=== PATIENT | male | born 1955 ===

== ENCOUNTER 2018-01-30 02:02 | Inpatient (IN) | payer OTHER ==
[2018-01-30] MEDS ORDERED: Ondansetron PF 4 MG/2 ML Vial ONE (02:30)
[2018-01-30 02:44] LABS: #Eosinphils 0.3 thou/uL (0.0-0.7); #Monocytes 1.2 thou/uL (0.11-0.59); #Neutrophils 14.3 thou/uL (1.40-6.50); %Basophils 0.1 % (0.0-1.0); %Eosinophils 1.8 % (0.0-10.0); %Lymphocytes 5.9 % (21.0-51.0); %Monocytes 7.2 % (0.0-10.0); Hemoglobin 13.6 g/dL (14.0-18.0); Mean Corpuscular HGB CONC 33.5 g/dL (32.0-36.0); Mean Corpuscular Hemoglobin 31.1 pg (27.0-31.0); Mean Corpuscular Volume 92.7 fL (78.0-98.0); Mean Platelet Volume 7.4 fL (7.4-10.4); Platelet Count 233 thou/uL (130-400); RBC Distribution Width 12.7 % (11.5-14.5); Red Blood Cell (RBC) Count 4.39 mill/uL (4.70-6.10); White Blood Cell (WBC) Count 16.8 thou/uL (4.8-10.8)
[2018-01-30 02:51] LABS: INR-International Normal Ratio 1.1; Prothrombin Time 14.5 SEC (12.0-14.7)
[2018-01-30 03:05] LABS: ALT (SGPT) 12 U/L (8-55); AST (SGOT) 20 U/L (5-34); Albumin 3.9 g/dL (3.4-4.8); Alkaline Phosphatase 107 U/L (40-150); Anion Gap 10 mmol/L (10-20); BUN (Urea Nitrogen) 10 mg/dL (8.4-25.7); Bilirubin, Total 0.2 mg/dL (0.2-1.2); Calc. Creatinine Clearance 0 mL/min (70-130); Calcium 8.8 mg/dL (7.8-10.44); Carbon Dioxide 26 mmol/L (23-31); Chloride 101 mmol/L (98-107); Estimated GFR-MDRD Greater than 90; Globulin 2.9 g/dL (2.4-3.5); Glucose 105 mg/dL (80-115); Potassium 3.7 mmol/L (3.5-5.1); Protein, Total 6.8 g/dL (5.8-8.1); Sodium 133 mmol/L (136-145)
[2018-01-30 03:08] LABS: CKMB 3.4 ng/mL (0-6.6); Troponin I Less than 0.010 ng/mL (< 0.028)
[2018-01-30] MEDS ORDERED: Acetaminophen 500 MG TAB ONE ×2 (03:27→03:31)
[2018-01-30] MEDS ORDERED: Lidocaine 1% w/Epinephrine 1:100K 20 ML VIAL ONE (04:43)
[2018-01-30] MEDS ORDERED: Piperacillin/Tazobactam 3.375 GM VIAL ONE (05:11)
[2018-01-30] MEDS ORDERED: Adacel (T-DAP) 0.5 ML SYRINGE ONE ×2 (06:37→06:44)
[2018-01-30 08:59] VITALS: BMI 21.8
--- NOTE | 2018-01-30 10:01 | CT ---
PRELIMINARY REPORT/[facility]/EMERGENTY AFTER-HOURS PROCEDURE CT Head Without Intravenous Contrast EXAM DATE/TIME: 01/30/2018 3:37 AM CLINICAL HISTORY: 62 years old, male; Injury or trauma; Fall; Initial encounter; Abrasion and bleeding / hemorrhage and blunt trauma (contusions or hematomas); Face and forehead; Injury date: 01/29/2018; Patient HX: PT fe ll and hit head on wheelchair. Per PT has HX of falls due to scoliosis. Loc unknown, approx. 200ml bl ood loss. Ems concerned with blood loss and possible AMS. Per stephon rn, PT able to protect airway, a ox4 TECHNIQUE: Axial computed tomography images of the head/brain without intravenous contrast. COMPARISON: No relevant prior studies available. FINDINGS: Brain: Volume loss and chronic small vessel ischemic change. No brain edema. No intracranial hemorrha ge. Ventricles: Normal. No ventriculomegaly. Bones/joints: Normal. No acute fracture. Sinuses: Normal as visualized. No acute sinusitis. Mastoid air cells: Normal as visualized. No mastoid effusion. Soft tissues: Scalp laceration. IMPRESSION: No acute brain findings. Thank you for allowing us to participate in the care of your patient. Dictated and Authenticated by: Horace Winn MD 01/30/2018 3:54 AM Central Time ([place] & [place]) FINAL REPORT EMERGENT AFTER HOURS CT OF BRAIN PERFORMED WITHOUT CONTRAST ENHANCEMENT: HISTORY: Fall with head injury. FINDINGS: The ventricular and cisternal system is within normal limits. There is some decreased attenuation to the periventricular white matter. There are no signs of intracerebral hemorrhage or extraaxial flui d collection. A scalp laceration is noted without evidence of underlying fracture. IMPRESSION: 1. No acute intracranial abnormalities. 2. This report is in agreement with the temporary report issued by [facility]. POS: [facility]
--- NOTE | 2018-01-30 10:02 | CT ---
PRELIMINARY REPORT/[facility]/EMERGENTY AFTER-HOURS PROCEDURE CT Cervical Spine Without Intravenous Contrast EXAM DATE/TIME: 01/30/2018 3:40 AM CLINICAL HISTORY: 62 years old, male; Injury or trauma; Fall; Initial encounter; Abrasion and bleeding/hemorrhage and b zhanna trauma; Injury date: 01/29/18; Patient HX: PT fell and hit head on wheelchair. Per PT has HX of f alls due to scoliosis. Loc unknown, approx. 200ml blood loss. Ems concerned with blood loss and possible AMS. Per stephon rn, PT able to protect airway, aox4 TECHNIQUE: Axial computed tomography images of the cervical spine without intravenous contrast. COMPARISON: No relevant prior studies available. FINDINGS: Vertebrae: No acute fracture. Normal alignment. Discs/Spinal canal/Neural foramina: No spinal stenosis. No neural foraminal narrowing. Soft tissues: Unremarkable. Lungs: Lung apices are normal. IMPRESSION: No acute findings. Thank you for allowing us to participate in the care of your patient. Dictated and Authenticated by: Horace Winn MD 01/30/2018 4:07 AM Central Time ([place] & [place]) FINAL REPORT EMERGENT AFTER HOURS CT OF CERVICAL SPINE PERFORMED WITHOUT CONTRAST ENHANCEMENT: HISTORY: Fall with neck injury. FINDINGS: The vertebral bodies are normal in height. There is marked degenerative disk narrowing from the C3-4 to the C6-7 level. Some retrolisthesis of C4 on C5 and C5 on C6 and C6 on C7. At the C3-4 level, h ere is moderate right-sided foraminal narrowing. There is bilateral foraminal stenosis at C4-5 and m ild to moderate canal narrowing and bilateral foraminal narrowing at C5-6 and C6-7. The foraminal na rrowing at C6-7 is particularly pronounced on the left. There is no CT evidence of a fracture. Lung apices show some emphysematous-type change. IMPRESSION: 1. Marked arthritic changes of the spine. No CT evidence of fracture. 2. This report is in agreement with the temporary report issued by [facility]. POS: [facility]
[2018-01-30] MEDS ORDERED: Clotrimazole 1 % Cream 30 GM TUBE TOP PRN ×2 (10:05→10:18)
[2018-01-30] MEDS ORDERED: Acetaminophen 325 MG TAB PO PRN (10:05)
[2018-01-30] MEDS ORDERED: Acetaminophen 650 MG Suppository PR PRN (10:05)
[2018-01-30] MEDS ORDERED: HYDROcodone/Acetaminophen 5/325 mg Tablet PO PRN (10:05)
[2018-01-30] MEDS ORDERED: Hydroxychloroquine Sulfate 200 MG TAB PO SCH ×2 (10:05)
--- NOTE | 2018-01-30 12:07 | RAD ---
LEFT SHOULDER 3 VIEWS: HISTORY: Fall. Shoulder pain. FINDINGS/IMPRESSION: No acute fracture or dislocation is seen. POS: [facility]
[2018-01-30] MEDS: Ipratropium Bromide 2.5 ml Neb NEB SCH ×2 (12:53→18:49)
[2018-01-30] MEDS ORDERED: Iopamidol 370 76% 100 ML VIAL ONE (13:52)
[2018-01-30] MEDS ORDERED: CHLORPHENIRAMINE MALEATE 4 MG PO SCH (15:00)
[2018-01-30] MEDS: HYDROcodone/Acetaminophen 5/325 mg Tablet PO PRN ×2 (15:02→21:00)
[2018-01-30] MEDS ORDERED: Fluticasone Propionate HFA 110 MCG AER INH SCH ×3 (18:30→21:00)
[2018-01-30] MEDS: Mometasone 100 MCG HFA INHALER INH SCH (18:46)
[2018-01-30] MEDS ORDERED: Pravastatin Sodium 40 MG TAB PO SCH (21:00)
[2018-01-30] MEDS: Atorvastatin Calcium 10 MG TAB PO SCH (21:02)
[2018-01-30] MEDS: Terazosin HCl 1 MG CAP PO SCH (21:03)
[2018-01-30] MEDS: Famotidine 20 MG TAB PO SCH (21:03)
[2018-01-30] MEDS: carBAMazepine 200 MG TAB PO SCH (21:03)
[2018-01-30] MEDS: Calcium Carbonate + Vit D 250 MG TAB PO SCH (21:03)
[2018-01-31] MEDS: HYDROcodone/Acetaminophen 5/325 mg Tablet PO PRN ×4 (00:55→22:11)
[2018-01-31] MEDS: Ipratropium Bromide 2.5 ml Neb NEB SCH ×5 (01:53→23:13)
[2018-01-31] MEDS: Mometasone 100 MCG HFA INHALER INH SCH ×2 (06:41→19:02)
[2018-01-31] MEDS: CHLORPHENIRAMINE MALEATE 4 MG PO SCH (08:10)
[2018-01-31] MEDS ORDERED: Non-Formulary Item 1 EACH (Omeprazole [Omeprazole] 20 MG) PO SCH (09:00)
[2018-01-31] MEDS ORDERED: Spiriva 18 MCG CAP (Box of 5 Caps) INH SCH (09:00)
[2018-01-31] MEDS ORDERED: Hydroxychloroquine Sulfate 200 MG TAB PO SCH (09:00)
[2018-01-31] MEDS ORDERED: Non-Formulary Item 1 EACH (Terazosin Hcl [Terazosin Hcl] 2 MG) PO SCH (09:00)
[2018-01-31] MEDS: Famotidine 20 MG TAB PO SCH ×2 (09:05→22:10)
[2018-01-31] MEDS: Calcium Carbonate + Vit D 250 MG TAB PO SCH ×2 (09:06→22:10)
[2018-01-31] MEDS: Lisinopril 2.5 MG TAB PO SCH (09:06)
[2018-01-31] MEDS: Leflunomide 10 mg Tablet PO SCH (09:06)
[2018-01-31] MEDS: Amlodipine 10 MG TAB PO SCH (09:07)
[2018-01-31] MEDS: Aspirin 81 mg Enteric Coated Tablet PO SCH (09:07)
[2018-01-31] MEDS: predniSONE 5 MG TAB PO SCH (09:07)
[2018-01-31] MEDS: carBAMazepine 200 MG TAB PO SCH ×2 (09:07→22:10)
[2018-01-31 09:30] LABS: #Basophils 0.1 thou/uL (0.0-0.2); #Eosinphils 0.5 thou/uL (0.0-0.7); #Monocytes 1.1 thou/uL (0.11-0.59); #Neutrophils 11.7 thou/uL (1.40-6.50); %Basophils 0.5 % (0.0-1.0); %Eosinophils 3.2 % (0.0-10.0); %Monocytes 7.6 % (0.0-10.0); %Neutrophils 81.7 % (42.0-75.0); Hemoglobin 13.3 g/dL (14.0-18.0); Mean Corpuscular HGB CONC 33.1 g/dL (32.0-36.0); Mean Corpuscular Hemoglobin 30.5 pg (27.0-31.0); Mean Corpuscular Volume 92.4 fL (78.0-98.0); Mean Platelet Volume 6.9 fL (7.4-10.4); Platelet Count 210 thou/uL (130-400); RBC Distribution Width 12.7 % (11.5-14.5); Red Blood Cell (RBC) Count 4.35 mill/uL (4.70-6.10); White Blood Cell (WBC) Count 14.3 thou/uL (4.8-10.8)
[2018-01-31 09:51] LABS: ALT (SGPT) 12 U/L (8-55); AST (SGOT) 16 U/L (5-34); Albumin 3.5 g/dL (3.4-4.8); Alkaline Phosphatase 94 U/L (40-150); Anion Gap 10 mmol/L (10-20); BUN (Urea Nitrogen) 10 mg/dL (8.4-25.7); Bilirubin, Total 0.4 mg/dL (0.2-1.2); Calc. Creatinine Clearance 81 mL/min (70-130); Calcium 8.9 mg/dL (7.8-10.44); Carbon Dioxide 26 mmol/L (23-31); Chloride 103 mmol/L (98-107); Estimated GFR-MDRD Greater than 90; Globulin 2.7 g/dL (2.4-3.5); Glucose 99 mg/dL (80-115); Magnesium 1.9 mg/dL (1.6-2.6); Protein, Total 6.2 g/dL (5.8-8.1); Sodium 135 mmol/L (136-145)
--- NOTE | 2018-01-31 11:16 | CT ---
PRELIMINARY REPORT/[facility]/EMERGENTY AFTER-HOURS PROCEDURE CT Chest With Intravenous Contrast EXAM DATE/TIME: 01/30/2018 3:47 AM CLINICAL HISTORY: 62 years old, male; Injury or trauma; Fall; Initial encounter; Abrasion and bleeding/hemorrhage and b zhanna; Generalized; Generalized abdominal region; Abrasion and bleeding/hemorrhage and blunt trauma (c ontusions or hematomas); Patient HX: PT fell and hit head on wheelchair. Per PT has HX of falls due t o scoliosis. Loc unknown, approx. 200ml blood loss. Ems concerned with blood loss and possible AMS. P er med rn, PT able to protect airway, aox4 TECHNIQUE: Axial computed tomography images of the chest with intravenous contrast. COMPARISON: No relevant prior studies available. FINDINGS: Lungs: Mild patchy bronchopneumonia/bronchiolitis in the left lower lobe. There are 2 adjacent irregu lar nodular opacities in the inferior right upper lobe, the larger of which measures 1 cm in size, in determinate, possibly scarring or sequela of prior infection. Neoplasm unlikely but not excluded. Pleural space: No pneumothorax or hemothorax. Heart: Normal. No cardiomegaly. No pericardial effusion. Mediastinum: Esophagus is unremarkable. Aorta: No traumatic aortic injury. No mediastinal hematoma, pneumomediastinum, or hemopericardium. Lymph nodes: Unremarkable. No enlarged lymph nodes. Bones/joints: Unremarkable. No acute fracture. Soft tissues: Gynecomastia. Other findings: No pulmonary contusion. IMPRESSION: 1. Mild patchy bronchopneumonia/bronchiolitis in the left lower lobe. 2. There are 2 adjacent irregular nodular opacities in the inferior right upper lobe, the larger of w hich measures 1 cm in size, indeterminate, possibly scarring or sequela of prior infection. Neoplasm unlikely but not excluded. 3. No acute traumatic injury. CT Abdomen and Pelvis With Intravenous Contrast EXAM DATE/TIME: 01/30/2018 3:47 AM TECHNIQUE: Axial computed tomography images of the abdomen and pelvis with intravenous contrast. COMPARISON: No relevant prior studies available. FINDINGS: Lower thorax: No acute findings. ABDOMEN: Liver: Normal. No mass. Gallbladder and bile ducts: Gallbladder sludge versus cholelithiasis. No cholecystitis. No biliary du ctal dilatation. Pancreas: Normal. No ductal dilation. Spleen: Normal. No splenomegaly. Adrenals: 7.1 cm right suprarenal mass containing gross fat, soft tissue density, and a small focal c alcification, potentially arising from the right adrenal gland. Kidneys and ureters: Subcentimeter low attenuation left renal lesion is too small to further characte rize, potentially a cyst. Nonobstructive nephrolithiasis left kidney. Stomach and bowel: No bowel wall thickening or intestinal obstruction. Appendix: Normal appendix. PELVIS: Bladder: Unremarkable as visualized. Reproductive: Unremarkable as visualized. ABDOMEN and PELVIS: Intraperitoneal space: No hemoperitoneum, pneumoperitoneum, mesenteric/omental contusion, or retroper itoneal hematoma. Bones/joints: No acute fracture. No dislocation. Soft tissues: Unremarkable. Vasculature: Normal. No abdominal aortic aneurysm. Lymph nodes: Normal. No enlarged lymph nodes. Other findings: No traumatic organ injury. IMPRESSION: 1. 7.1 cm right suprarenal mass containing gross fat, soft tissue density, and a small focal calcific ation, potentially arising from the right adrenal gland. This is potentially malignant, possibly a li posarcoma. Fat necrosis less likely but not excluded. 2. No acute traumatic injury. Thank you for allowing us to participate in the care of your patient. Dictated and Authenticated by: Horace Winn MD 01/30/2018 4:16 AM Central Time ([place] & [place]) FINAL REPORT CT OF CHEST AND ABDOMEN AND PELVIS AND THORACIC AND LUMBAR SPINE PERFORMED WITH INTRAVENOUS CONTRAST ENHANCEMENT: HISTORY: The patient is status post fall with diffuse pain and bruising and bleeding. FINDINGS: The lungs show some areas of ground-glass opacity in the left lower lobe and right upper lobe. There is also a pleural-based 4 m nodular density seen in the right upper lobe axial image 32 and a simila r-sized pleural-based nodule seen along the major fissure on the left on axial image 30. There are s ubsegmental atelectatic changes in the lung bases. There are no signs of pneumothorax. I did not vi sualize any definite acute rib fractures. Thoracic aorta is normal in caliber. No signs for mediastinal hematoma. A tiny pericardial effusion is seen. CT OF ABDOMEN PERFORMED WITH CONTRAST: The liver, spleen, and pancreas regions are unremarkable. The gallbladder shows some areas of increa sed attenuation. This could represent sludge or stones. Gallbladder is mildly distended. In the region of the right adrenal gland is a large mass which contains fat density as well as some c alcifications. It has a thin pseudocapsule. This measures approximately 6.9 cm in diameter. It is probably related to the inferior limb of the right adrenal gland. The left adrenal is normal in appe arance. There is a tiny calculus seen in the upper pole of the right kidney. There are hypodensitie s involving both kidneys which are statistically most likely cysts. No significant periaortic or mes enteric adenopathy. No signs for any bowel wall injury. CT OF PELVIS PERFORMED WITH CONTRAST ENHANCEMENT: No evidence of adenopathy, mass, or free fluid. Slight bladder wall thickening may be on the basis o f some bladder outlet obstruction. There are old-appearing right superior and inferior pubic rami fr actures. CT THORACIC SPINE: Arthritic changes without acute injury. CT OF LUMBAR SPINE: No acute injury. IMPRESSION: 1. Approximately 6.9 cm right suprarenal mass which has fat and calcification within it. It appears to be probably related to the inferior limb of the right adrenal gland and most likely is of adrenal origin, probably a myelolipoma. Another consideration would be a retroperitoneal liposarcoma. This does not appear to represent an angiomyelipoma as it appears to have a fat plane the bobby cent kidney. 2. Tiny punctate nonobstructing upper pole left renal calculus. 3. Mild gallbladder distention with sludge or stones. Ultrasound would be required for assessment. 4. Small pleural-based pulmonary nodules. These could represent subpleural nodes. 5. Ground-glass opacities in both lung anthony. This would suggest some minimal pneumonitis-type leilani nge. 6. No evidence of any acute traumatic injury. 7. This report is in agreement with the temporary report issued by [facility]. POS: [facility]
[2018-01-31] MEDS: Ondansetron ODT 4 MG TAB PO PRN ×2 (11:50→22:11)
[2018-01-31] MEDS: Meclizine HCl 25 MG TAB PO PRN ×2 (11:50→22:10)
[2018-01-31] MEDS: Atorvastatin Calcium 10 MG TAB PO SCH (22:10)
[2018-01-31] MEDS: Terazosin HCl 1 MG CAP PO SCH (22:12)
[2018-01-31] MEDS: Sodium Chloride 0.9% 10 ML ONE (22:12)
[2018-02-01 05:48] LABS: #Eosinphils 0.3 thou/uL (0.0-0.7); #Lymphocytes 1.2 thou/uL (1.20-3.40); #Monocytes 0.9 thou/uL (0.11-0.59); #Neutrophils 6.8 thou/uL (1.40-6.50); %Basophils 0.1 % (0.0-1.0); %Eosinophils 3.5 % (0.0-10.0); %Lymphocytes 13.2 % (21.0-51.0); %Monocytes 9.6 % (0.0-10.0); %Neutrophils 73.6 % (42.0-75.0); Hemoglobin 12.4 g/dL (14.0-18.0); Mean Corpuscular HGB CONC 32.7 g/dL (32.0-36.0); Mean Corpuscular Hemoglobin 30.3 pg (27.0-31.0); Mean Corpuscular Volume 92.9 fL (78.0-98.0); Mean Platelet Volume 7.4 fL (7.4-10.4); Platelet Count 231 thou/uL (130-400); RBC Distribution Width 12.8 % (11.5-14.5); White Blood Cell (WBC) Count 9.2 thou/uL (4.8-10.8)
[2018-02-01 05:51] LABS: ALT (SGPT) 12 U/L (8-55); AST (SGOT) 17 U/L (5-34); Albumin 3.5 g/dL (3.4-4.8); Alkaline Phosphatase 94 U/L (40-150); Anion Gap 11 mmol/L (10-20); BUN (Urea Nitrogen) 12 mg/dL (8.4-25.7); Bilirubin, Total 0.4 mg/dL (0.2-1.2); Calc. Creatinine Clearance 77 mL/min (70-130); Calcium 8.6 mg/dL (7.8-10.44); Carbon Dioxide 25 mmol/L (23-31); Chloride 103 mmol/L (98-107); Estimated GFR-MDRD Greater than 90; Globulin 2.4 g/dL (2.4-3.5); Glucose 99 mg/dL (80-115); Magnesium 2.1 mg/dL (1.6-2.6); Potassium 3.9 mmol/L (3.5-5.1); Protein, Total 5.9 g/dL (5.8-8.1); Sodium 135 mmol/L (136-145)
[2018-02-01] MEDS: HYDROcodone/Acetaminophen 5/325 mg Tablet PO PRN ×2 (06:35→13:21)
[2018-02-01] MEDS: Ipratropium Bromide 2.5 ml Neb NEB SCH (06:48)
[2018-02-01] MEDS: Mometasone 100 MCG HFA INHALER INH SCH (06:50)
--- NOTE | 2018-02-01 08:05 | PDOC.PN ---
- Subjective Encounter Start Date: 02/01/18 Encounter Start Time: 08:03 Subjective: shoulder pain - Objective Resuscitation Status: Resuscitation Status FULL:Full Resuscitation Vital Signs & Weight: Vital Signs (12 hours) Temp Pulse Resp BP BP Pulse Ox 02/01/18 06:48 88 16 98 02/01/18 04:00 98.4 F 88 20 101/55 L 98 01/31/18 23:13 90 18 01/31/18 22:11 96 01/31/18 22:01 98 F 84 16 120/71 96 Weight Weight 129 lb 4.8 oz I&O: 01/31/18 02/01/18 02/02/18 06:59 06:59 06:59 Intake Total 1260 Output Total 750 Balance 510 Result Diagrams: 02/01/18 05:03 02/01/18 05:03 Phys Exam - Physical Examination sutured laceration scalp Respiratory: no wheezing Cardiovascular: RRR, no significant murmur Gastrointestinal: soft, positive bowel sounds Musculoskeletal: no edema Dx/Plan (1) Scalp laceration Status: Acute Qualifiers: Encounter type: initial encounter Qualified Code(s): S01.01XA - Laceration without foreign body of scalp, initial encounter (2) Hepatitis-C Code(s): B19.20 - UNSPECIFIED VIRAL HEPATITIS C WITHOUT HEPATIC COMA Status: Acute Qualifiers: Viral hepatitis chronicity: chronic Hepatic coma status: without hepatic coma Qualified Code(s): B18.2 - Chronic viral hepatitis C (3) HTN (hypertension) Code(s): I10 - ESSENTIAL (PRIMARY) HYPERTENSION Status: Acute Qualifiers: Hypertension type: essential hypertension Qualified Code(s): I10 - Essential (primary) hypertension (4) PNA (pneumonia) Code(s): J18.9 - PNEUMONIA, UNSPECIFIED ORGANISM Status: Acute Qualifiers: Pneumonia type: due to Pneumococcus Laterality: left Lung location: lower lobe of lung Qualified Code(s): J13 - Pneumonia due to Streptococcus pneumoniae - Plan * .
[2018-02-01] MEDS ORDERED: Hydroxychloroquine Sulfate 200 MG TAB PO SCH (09:00)
[2018-02-01] MEDS: carBAMazepine 200 MG TAB PO SCH (09:24)
[2018-02-01] MEDS: predniSONE 5 MG TAB PO SCH (09:25)
[2018-02-01] MEDS: Leflunomide 10 mg Tablet PO SCH (09:25)
[2018-02-01] MEDS: Amlodipine 10 MG TAB PO SCH (09:25)
[2018-02-01] MEDS: Famotidine 20 MG TAB PO SCH (09:26)
[2018-02-01] MEDS: Calcium Carbonate + Vit D 250 MG TAB PO SCH (09:26)
[2018-02-01] MEDS: Aspirin 81 mg Enteric Coated Tablet PO SCH (09:26)
[2018-02-01] MEDS: Lisinopril 2.5 MG TAB PO SCH (09:26)
[2018-02-01] MEDS: Sodium Chloride 0.9% 10 ML ONE (09:27)
[2018-02-01] MEDS: Meclizine HCl 25 MG TAB PO PRN (10:50)
--- NOTE | 2018-02-01 12:36 | DIS ---
DATE OF ADMISSION: 01/30/2018 DATE OF DISCHARGE: 02/01/2018 Discharged back to [facility]. FINAL DIAGNOSES: Fall, scalp laceration post-suture, question of pneumonia versus bronchiolitis, hep atitis C, hypertension, chronic obstructive pulmonary disease. DISCHARGE MEDICATIONS: The patient is being discharged on his usual home medicines, amlodipine 5 mg a day, aspirin 81 mg a day, 400 mg b.i.d., chlorpheniramine 4 mg t.i.d., hydroxychloroquine 20 0 mg a.m., 400 mg p.m., Arava 20 mg p.o. daily, lisinopril 2.5 mg a day, omeprazole 20 mg a day, prav astatin 40 mg a day, terazosin 2 mg a day, Spiriva 18 mcg a day, prednisone 15 mg a day plus Omnicef 300 mg p.o. b.i.d. ALLERGIES: NAPROXEN. CODE STATUS: FULL. PENDING AT THE TIME OF DISCHARGE: Nothing. DIET: As tolerated. HOSPITAL COURSE: Patient at the [facility], fell out of his wheelchair, hit his head, was brought to the em ergency room. Scalp lesions were lacerated. He had multiple somatic complaints. LABORATORY DATA: Initial white count 16.8, current 9.2. Initial hemoglobin 13.6, current 12.4. Ini tial platelet count 233,000, current 231,000. INR 1.1. Comp metabolic profile x3 reveals only a mil d low sodium of 133, 135, 135. Unfortunately, history and physical, progress note from his two previous days of admission are not av ailable. I have carefully researched the emergency room note, carefully evaluated the patient find t hat he is in no need of hospital care at this time. He is being discharged for followup in 7 days in the half-way. CT scan of his chest reveals some possible left lower lobe, small pneumonia or bronchioli tis. He was placed on oral antibiotics in the hospital. Blood cultures were negative. Patient has been afebrile with no respiratory complaints in the hospital. He is being discharged on the addition al Omnicef 300 mg p.o. b.i.d. for 7 days for this possible low-grade chest infection. It is advisabl e he is reevaluated by medical care at the half-way in 7 days.
[2018-02-01 13:34] VITALS: BP 103/61; TEMP 98.3
--- NOTE | 2018-02-12 17:04 | EKG ---
Test Reason : Blood Pressure : / mmHG Vent. Rate : 098 BPM Atrial Rate : 098 BPM P-R Int : 128 ms QRS Dur : 090 ms QT Int : 370 ms P-R-T Axes : 023 031 050 degrees QTc Int : 472 ms Normal sinus rhythm Normal ECG Confirmed by EVI HAYNES ([id number]), editor magazine MARY JENSEN ([id number]) on 02/12/2018 5:04:06 PM Referred By: Confirmed By:EVI HAYNES
--- NOTE | 2018-04-20 05:45 | HP ---
PRIMARY CARE PHYSICIAN: Unknown. Out of town. CHIEF COMPLAINT: Fall. HISTORY OF PRESENT ILLNESS: Mr. Gaston is a 62-year-old male who presented to an outside emergency department at [facility] for evaluation of a fall. The patient was in a wheelchair and fell out. He lost approximately 200 mL of blood and was complaining of head pain. He was seen and evaluated at the [facility] and transferred to our facility for further workup and admission. He complained of left shoulder pain. Did not lose consciousness. No chest pain or shortness of breath. No diarrhea or constipation. No syncope or presyncope. The patient is a prisoner at one of the units in [place], however, there was no bed at [facility] and so they were unable to transfer the patient, so he was transferred to us to admit. He was accepted by the regional operations manager with a hold over for the morning. PAST MEDICAL HISTORY: 1. Atrial fibrillation. 2. Hypertension. 3. Osteoarthritis. 4. Rheumatoid arthritis. 5. COPD. 6. Anxiety with depression. PAST SURGICAL HISTORY: Includes; 1. Multiple skin grafts. 2. Umbilical hernia repair. 3. Foot surgery. ALLERGIES: NAPROSYN CAUSES GI BLEEDING. HOME MEDICATIONS: Include; 1. Tylenol 650 mg p.o. t.i.d. 2. Amlodipine 10 mg daily. 3. Aspirin 81 mg daily. 4. Carbamazepine 200 mg p.o. b.i.d.. 5. Calcium carbonate plus D 600/500 one tablet daily. 6. Chlorpheniramine 4 mg t.i.d. 7. Clotrimazole cream 1% topically as needed. 8. Flovent HFA 2 puffs inhaled q.4 hours p.r.n. 9. Hydroxychloroquine 200 mg p.o. 3 times a week, 400 mg 4 times a week. 10. Leflunomide 20 mg p.o. daily. 11. Lisinopril 2.5 mg p.o. daily. 12. Omeprazole 20 mg daily. 13. Pravastatin 40 mg p.o. at bedtime. 14. Prednisone 2.5 mg p.o. daily. 15. Spiriva 18 mcg inhaled daily. 16. Terazosin 2 mg p.o. daily. SOCIAL HISTORY: Prior tobacco use, quit more than 10 years ago, smoked about a pack per day. FAMILY HISTORY: Negative for clotting or bleeding disorders, no immune dysfunction. REVIEW OF SYSTEMS: All systems reviewed and negative except as stated in the HPI. PHYSICAL EXAMINATION: VITAL SIGNS: Temperature in the emergency department was 98.7, pulse 106, blood pressure 145/98, respiratory rate 17, saturating 98% on room air. GENERAL: He is awake; he is alert; he is oriented x3, well-developed, well-nourished white male. No acute distress. HEENT: Normocephalic. He does have laceration on the posterior aspect of his head that has been stapled. There is some dried blood around it, but it is not actively bleeding. His pupils are equal, round, and reactive to light bilaterally. Mucous membrane are moist. No visible lesions. No thrush. NECK: Supple. There is no lymphadenopathy, JVD, or thyromegaly. Normal carotid upstrokes. I do not appreciate bruits. LUNGS: Clear. No wheezes, no rales, no rhonchi with good air movement. Symmetric chest excursion. No prolonged expiratory phase. CARDIOVASCULAR: Irregularly irregular and tachycardic. No appreciable murmurs. ABDOMEN: Soft, nontender, nondistended. No masses or organomegaly. EXTREMITIES: No cyanosis, no clubbing, no edema. SKIN: Otherwise warm, moist, well perfused. He has no other rashes or lesions. NEUROLOGIC: Cranial nerves 2 through 12 are grossly intact. He has no focal deficits. Normal strength. Normal speech. LABORATORY EVALUATION: CBC showed a white blood cell count of 16.8, hemoglobin 13.6, hematocrit of 40.7, and platelet count is 233, with a fairly normal differential. INR was 1.1. Chemistry profile showed a CMP that was completely within normal limits. CK-MB of 3.4. Troponin I is undetectable, less than 0.010. Lactic acid 1.0. ASSESSMENT AND PLAN: 1. Mechanical fall out of a wheelchair. 2. Head injury with scalp laceration, status post repair. 3. Chronic atrial fibrillation, currently in a slightly tachycardic response. 4. History of hepatitis C. 5. Essential hypertension. We will place the patient on observation. We will watch him overnight, likely return back to the [facility] tomorrow if he is stable. We will check morning labs including CBC and CMP. Job ID: [id number] [facility]
== END 2018-02-01 15:20 | DRG 604 ==
LOC: ERS 02:02 → ONC 08:11 → 2NO 13:42
PROVIDERS: ADMIT Internal Medicine; ATTEND Internal Medicine
PROC: 0HQ0XZZ Repair Scalp Skin, External Approach (ICD-10-PCS; principal; 2018-01-30)
DX: S01.01XA Laceration without foreign body of scalp, initial encounter (principal); J13 Pneumonia due to Streptococcus pneumoniae; Y92.9 Unspecified place or not applicable; I10 Essential (primary) hypertension; M19.90 Unspecified osteoarthritis, unspecified site; W05.0XXA Fall from non-moving wheelchair, initial encounter; M06.9 Rheumatoid arthritis, unspecified; J44.9 Chronic obstructive pulmonary disease, unspecified; F41.9 Anxiety disorder, unspecified; F32.9 Major depressive disorder, single episode, unspecified; R91.8 Other nonspecific abnormal finding of lung field; I48.2 Chronic atrial fibrillation; N28.89 Other specified disorders of kidney and ureter; B18.2 Chronic viral hepatitis C; M25.512 Pain in left shoulder; Z79.82 Long term (current) use of aspirin; Z87.891 Personal history of nicotine dependence
CPT/HCPCS: 12005; 36415; 70450; 71260; 72125; 72131; 74177; 80053; 82553; 83605; 83735; 84484; 85025; 85610; 85730; 87040; 90471; 90715; 93005; 94640; 94664; 96365; 96367; 96375; J2001; J2405; J2543; J3370; Q0162